=== PATIENT | female | born 1950 | race Caucasian/White ===

== ENCOUNTER → 2017-12-06 | Outpatient (CLI) | payer OTHER ==
[2017-12-06 15:31] LABS: BILIRUBIN NEGATIVE (NEGATIVE); BLOOD 2+ (NEGATIVE); CLARITY SL CLOUDY (CLEAR); COLOR YELLOW (YELLOW); GLUCOSE 2+ (NEGATIVE); KETONE NEGATIVE (NEGATIVE); LEUKO ESTERASE 1+ (NEGATIVE); NITRITE POSITIVE (NEGATIVE); PH 5.5 (5.0-9.0); SPECIFIC GRAVITY >= 1.030 (1.005-1.030); UROBILINOGEN 0.2 E.U./dl (0.2-1.0)
[2017-12-06 15:42] LABS: BACTERIA 1+; MUCOUS 1+; WBC TNTC wbc/hpf (0-5)
== END | disposition home or self-care (01) ==
LOC: RESCLI 03:43
PROVIDERS: Student in an Organized Health Care Education/Training Program
DX: Z12.31 Encounter for screening mammogram for malignant neoplasm of breast (principal); Z12.11 Encounter for screening for malignant neoplasm of colon; I10 Essential (primary) hypertension; E11.3293 Type 2 diabetes mellitus with mild nonproliferative diabetic retinopathy without macular edema, bilateral; E78.5 Hyperlipidemia, unspecified; F41.9 Anxiety disorder, unspecified; F32.9 Major depressive disorder, single episode, unspecified; R39.9 Unspecified symptoms and signs involving the genitourinary system; Z79.4 Long term (current) use of insulin; Z76.89 Persons encountering health services in other specified circumstances; Z90.710 Acquired absence of both cervix and uterus

== ENCOUNTER → 2018-03-08 | Outpatient (CLI) | payer OTHER | END | disposition home or self-care (01) | LOC: RESCLI 01:44 | DX: E11.3293 Type 2 diabetes mellitus with mild nonproliferative diabetic retinopathy without macular edema, bilateral (principal); E78.5 Hyperlipidemia, unspecified; I10 Essential (primary) hypertension; F41.9 Anxiety disorder, unspecified; F33.9 Major depressive disorder, recurrent, unspecified; E66.09 Other obesity due to excess calories; Z79.4 Long term (current) use of insulin; Z79.899 Other long term (current) drug therapy; Z79.82 Long term (current) use of aspirin; Z88.8 Allergy status to other drugs, medicaments and biological substances ==

== ENCOUNTER 2020-08-11 11:09 | Emergency (ER) | payer OTHER ==
[~2020-08-11] VITALS: Ht 170.1 cm; Wt 102.1 kg
[2020-08-11 12:52] VITALS: BP 140/76
== END 2020-08-11 13:53 | disposition home or self-care (01) ==
LOC: ED 11:09
DX: S00.03XA Contusion of scalp, initial encounter (principal); Z90.711 Acquired absence of uterus with remaining cervical stump; Z90.49 Acquired absence of other specified parts of digestive tract; W17.89XA Other fall from one level to another, initial encounter; Y93.01 Activity, walking, marching and hiking; Y92.89 Other specified places as the place of occurrence of the external cause; Y99.8 Other external cause status

== ENCOUNTER 2021-07-29 21:42 | Emergency (ER) | payer OTHER, MEDICAID ==
[~2021-07-29] VITALS: Ht 167.6 cm; Wt 90.7 kg
[2021-07-29 21:46] VITALS: BP 160/67
== END 2021-07-29 22:40 | disposition home or self-care (01) ==
LOC: ED 21:42
DX: R04.0 Epistaxis (principal); R09.89 Other specified symptoms and signs involving the circulatory and respiratory systems; Z90.49 Acquired absence of other specified parts of digestive tract; Z90.710 Acquired absence of both cervix and uterus

== ENCOUNTER 2023-08-03 11:44 | Emergency (ER) | payer MEDICARE ==
[~2023-08-03] VITALS: Ht 167.6 cm
[2023-08-03 12:02] VITALS: BP 125/61
[2023-08-03 12:28] LABS: BASO # 0.1 10*3/uL (0.0-0.1); BASO % 0.8 % (0.0-1.0); EOS % 0.1 % (1.0-4.0); HEMATOCRIT 34.4 % (37.0-47.0); LYMPH # 0.7 10*3/uL (1.3-4.4); MEAN CELL VOLUME 96.9 fl (81.0-99.0); MEAN CORPUSCULAR HGB CONC 29.9 g/dl (33.0-37.0); MEAN PLATELET VOLUME 10.5 fl (9.6-12.3); MONO # 0.4 10*3/uL (0.1-1.0); MONO % 6.1 % (3.0-9.0); NEUT # 5.9 10*3/uL (2.3-7.9); NEUT % 82.9 % (47.0-73.0); PLATELET COUNT AUTOMATED 176 10*3/uL (130-400); RED BLOOD COUNT 3.55 10*6/uL (4.10-5.10); RED CELL DISTRI WIDTH 14.9 % (0-14.5); WHITE BLOOD COUNT 7.2 10*3/uL (4.8-10.8)
[2023-08-03 12:50] LABS: POTASSIUM 4.9 mmol/L (3.4-5.1)
[2023-08-03 12:52] LABS: BILIRUBIN Negative (Negative); BLOOD Negative (Negative); CLARITY Clear (Clear); COLOR Yellow (Yellow); GLUCOSE Negative (Negative); KETONE Negative (Negative); LEUKO ESTERASE Negative (Negative); NITRITE Negative (Negative); UROBILINOGEN 0.2 E.U./dl (0.0-1.0)
[2023-08-03 13:00] LABS: BACTERIA 1+; EPITHELIAL CELLS 0-2; HYALINE CAST 0-2
[2023-08-03] MEDS ORDERED: GNP VITAMIN A113 GM PO (13:01)
[2023-08-03] MEDS ORDERED: LISINOPRIL20 MG PO (13:01)
[2023-08-03] MEDS ORDERED: ATORVASTATIN CA40 M1 PO (13:02)
[2023-08-03] MEDS ORDERED: Lopressor25 MG PO (13:02)
[2023-08-03] MEDS ORDERED: PIOGLITAZONE HC30 MG PO (13:02)
[2023-08-03] MEDS ORDERED: TRADJENTA5 M1 PO (13:03)
[2023-08-03] MEDS ORDERED: SOLIFENACIN SUCC5 MG PO (13:04)
[2023-08-03] MEDS ORDERED: MYRBETRIQ50 M1 PO (13:04)
[2023-08-03] MEDS ORDERED: CETIRIZINE HYDR10 MG PO (13:04)
[2023-08-03] MEDS ORDERED: CIPRO500 MG PO (13:14)
[2023-08-03] MEDS ORDERED: methylPREDNISolone sod succ 125 MG VIAL IM ONE (13:15)
[2023-08-03] MEDS ORDERED: Ciprofloxacin Hydrochloride 500 MG TAB PO ONE (13:15)
== END 2023-08-03 13:29 | disposition home or self-care (01) ==
LOC: ED 11:44
PROVIDERS: Nurse Practitioner Family
DX: N39.0 Urinary tract infection, site not specified (principal); M54.50 Low back pain, unspecified; Z79.899 Other long term (current) drug therapy; Z90.49 Acquired absence of other specified parts of digestive tract; Z90.711 Acquired absence of uterus with remaining cervical stump

== ENCOUNTER 2024-12-27 15:09 | Emergency (ER) | payer OTHER ==
[~2024-12-27] VITALS: Ht 167.6 cm; Wt 125.2 kg
[~2024-12-27 15:09] MED LIST: ATORVASTATIN CA40 M1 PO; CETIRIZINE HYDR10 MG PO; CIPRO500 MG PO; GNP VITAMIN A113 GM PO; LANTUS100 UNIT/1 SQ; LISINOPRIL20 MG PO; Lopressor25 MG PO; MYRBETRIQ50 M1 PO; PIOGLITAZONE HC30 MG PO; REMERON30 M1 PO; SOLIFENACIN SUCC5 MG PO; TRADJENTA5 M1 PO; TRIAMTERENE-HC1 EACH PO; VITAMIN D3125 MCG PO
[2024-12-27 15:16] VITALS: BP 140/39
[2024-12-27] MEDS ORDERED: SERTRALINE HYDR50 MG PO (15:19)
[2024-12-27] MEDS ORDERED: SODIUM CHLORIDE 0.9% 500 ML IV ONE (15:20)
[2024-12-27] MEDS ORDERED: LASIX20 MG PO (15:21)
[2024-12-27 16:11] LABS: BUN 37.0 mg/dl (9-23)
[2024-12-27 16:27] LABS: BASO # 0.1 10*3/uL (0.0-0.1); BASO % 0.7 % (0.0-1.0); EOS # 0.1 10*3/uL (0.0-0.4); EOS % 1.4 % (1.0-4.0); MEAN CELL VOLUME 96.2 fl (81.0-99.0); MEAN CORPUSCULAR HGB 30.1 pg (27.0-31.0); MEAN PLATELET VOLUME 11.0 fl (9.6-12.3); MONO # 0.8 10*3/uL (0.1-1.0); MONO % 9.6 % (3.0-9.0); NEUT # 6.8 10*3/uL (2.3-7.9); NEUT % 77.5 % (47.0-73.0); NUCLEATED RED BLOOD CELL 0.0 % (0.0-0.0); NUCLEATED RED BLOOD CELL 0.0 10*3/uL (0.0-0.0); PLATELET COUNT AUTOMATED 158 10*3/uL (130-400); RED CELL DISTRI WIDTH 13.6 % (0-14.5)
[2024-12-27] MEDS ORDERED: ACETAMINOPHEN 325 MG TAB PO ONE (18:25)
== END 2024-12-27 18:51 | disposition home or self-care (01) ==
LOC: ED 15:09
PROVIDERS: Emergency Medicine
DX: S01.311A Laceration without foreign body of right ear, initial encounter (principal); R55 Syncope and collapse; N18.9 Chronic kidney disease, unspecified; E66.01 Morbid (severe) obesity due to excess calories; Z79.899 Other long term (current) drug therapy; Z79.4 Long term (current) use of insulin; Z90.49 Acquired absence of other specified parts of digestive tract; Z90.710 Acquired absence of both cervix and uterus; Z90.89 Acquired absence of other organs; Z68.30 Body mass index [BMI] 30.0-30.9, adult; W01.198A Fall on same level from slipping, tripping and stumbling with subsequent striking against other object, initial encounter; Y93.89 Activity, other specified; Y92.89 Other specified places as the place of occurrence of the external cause; Y99.8 Other external cause status

== ENCOUNTER 2025-02-11 09:28 | Emergency (ER) | payer OTHER ==
[~2025-02-11 09:28] MED LIST changes: +BACTRIM DS 8001 EACH PO; +INSULIN LI100 UNIT/2 SQ; +LASIX20 MG PO; +MIDODRINE HCL5 M1 PO; +SEPTDS PO; +SERTRALINE HYDR50 MG PO
[2025-02-11 09:30] VITALS: BP 186/65
[2025-02-11] MEDS ORDERED: MG-AL HYDROXIDE/SIMETICONE 30 ML UDC PO ONE (09:55)
[2025-02-11] MEDS ORDERED: Ondansetron Hydrochloride 4 MG/2 ML VIAL IV ONE (09:55)
[2025-02-11] MEDS ORDERED: IOHEXOL 300 MG/ML 100 ML VIAL IV ONE (10:00)
[2025-02-11 10:18] LABS: BASO # 0.1 10*3/uL (0.0-0.1); BASO % 0.4 % (0.0-1.0); EOS # 0.0 10*3/uL (0.0-0.4); EOS % 0.1 % (1.0-4.0); MEAN CELL VOLUME 95.6 fl (81.0-99.0); MEAN CORPUSCULAR HGB 29.1 pg (27.0-31.0); MEAN PLATELET VOLUME 10.6 fl (9.6-12.3); MONO # 0.7 10*3/uL (0.1-1.0); MONO % 5.5 % (3.0-9.0); NEUT # 11.4 10*3/uL (2.3-7.9); NEUT % 88.7 % (47.0-73.0); NUCLEATED RED BLOOD CELL 0.0 % (0.0-0.0); NUCLEATED RED BLOOD CELL 0.0 10*3/uL (0.0-0.0); PLATELET COUNT AUTOMATED 149 10*3/uL (130-400); RED CELL DISTRI WIDTH 14.0 % (0-14.5)
[2025-02-11 10:28] LABS: ACT PARTIAL THROMBO TIME 25.4 SECONDS (20.0-32.1)
[2025-02-11 10:39] LABS: BUN 38.0 mg/dl (9-23); SGPT/ALT 29.0 U/L (5-49)
[2025-02-11] MEDS ORDERED: OMEPRAZOLE 20 MG CAP PO ONE (13:45)
[2025-02-11] MEDS ORDERED: SUCRALFATE 1 GM TAB PO ONE (13:45)
[2025-02-11] MEDS ORDERED: Promethazine Hydrochloride 25 MG/ML VIAL IM ONE (14:30)
[2025-02-11] MEDS ORDERED: OMEPRAZOLE40 MG PO (16:25)
[2025-02-11] MEDS ORDERED: Carafate1 GM PO (16:25)
[2025-02-11] MEDS ORDERED: Ondansetron4 MG PO (16:43)
== END 2025-02-11 17:27 ==
LOC: ED 09:28
PROVIDERS: Emergency Medicine
DX: K21.00 Gastro-esophageal reflux disease with esophagitis, without bleeding (principal); R10.12 Left upper quadrant pain; R11.2 Nausea with vomiting, unspecified; Z79.899 Other long term (current) drug therapy; Z79.4 Long term (current) use of insulin; Z90.49 Acquired absence of other specified parts of digestive tract; Z90.710 Acquired absence of both cervix and uterus; Z90.89 Acquired absence of other organs

== ENCOUNTER 2025-02-16 16:57 | Emergency (ER) | payer OTHER ==
[~2025-02-16 16:57] MED LIST changes: +Carafate1 GM PO; +OMEPRAZOLE40 MG PO; +Ondansetron4 MG PO
[2025-02-16 17:13] VITALS: BP 80/40
== END 2025-02-16 20:26 ==
LOC: ED 16:57
DX: R09.2 Respiratory arrest (principal); Z66 Do not resuscitate; E11.9 Type 2 diabetes mellitus without complications; Z90.49 Acquired absence of other specified parts of digestive tract; Z90.710 Acquired absence of both cervix and uterus; Z98.890 Other specified postprocedural states; Z90.89 Acquired absence of other organs